=== PATIENT | female | born 1990 | race African-American/Black ===

== ENCOUNTER 2024-09-03 09:21 | Inpatient (IN) | payer MEDICAID ==
[~2024-09-03] VITALS: Ht 160 cm; Wt 83.0 kg
[~2024-09-03 09:21] MED LIST: CARV6.2548 PO; FURO40TA5 PO; LISI-186 PO; ONDA-239 PO; OXYC-89 PO; PANT40TA51 PO
[2024-09-03 09:51] LABS: BASOPHILS % 0.3 % (0.0-2.0); EOSINOPHILS % 0.6 % (0.0-5.0); HEMATOCRIT. 33.1 % (36.0-48.0); HEMOGLOBIN. 10.3 g/dL (12.0-16.0); LYMPHOCYTES % 13.3 % (20.0-50.0); MEAN CORPUSCULAR HEMOGLOBIN 25.8 pg (28.0-32.0); MEAN CORPUSCULAR HGB CONC 31.2 g/dL (31.0-37.0); MEAN CORPUSCULAR VOLUME 82.7 fL (81.0-99.0); MONOCYTES % 12.7 % (2.0-8.0); NEUTROPHILS % 73.1 % (40.0-76.0); PLATELET 331 x1000/uL (130-400); WHITE BLOOD COUNT 9.2 x1000/uL (4.5-11.0)
[2024-09-03 10:02] LABS: CHLORIDE 100 mEq/L (98-107); POTASSIUM 3.9 mEq/L (3.5-5.1); SODIUM 136 mEq/L (136-145)
[2024-09-03 10:03] LABS: CARBON DIOXIDE 25 mEq/L (21-32)
[2024-09-03 10:04] LABS: CALCIUM 9.2 mg/dL (8.7-10.4)
[2024-09-03 10:08] LABS: CREATININE 0.7 mg/dL (0.6-1.0); GLUCOSE 94 mg/dL (70-105); UREA NITROGEN BLOOD 6 mg/dL (9-23)
[2024-09-03 10:09] LABS: TROPONIN I HIGH SENSITIVITY 4 ng/L (3.0-34)
[2024-09-03 10:10] LABS: ALANINE AMINOTRANSFERASE 19 IU/L (10-49); ALBUMIN 4.1 g/dL (3.2-4.8); ASPARTATE AMINOTRANSFERASE 26 IU/L (<34)
[2024-09-03 10:11] LABS: BILIRUBIN TOTAL 0.8 mg/dL (0.1-1.0); PROTEIN TOTAL 7.8 g/dL (6.0-8.3)
[2024-09-03] MEDS: KETOROLAC 30MG/ML VIAL IV STA (10:12)
[2024-09-03 10:59] LABS: TROPONIN I HIGH SENSITIVITY 4 ng/L (3.0-34)
[2024-09-03 11:00] LABS: ALANINE AMINOTRANSFERASE 19 IU/L (10-49); ALBUMIN 3.9 g/dL (3.2-4.8); ASPARTATE AMINOTRANSFERASE 26 IU/L (<34); BILIRUBIN DIRECT 0.3 mg/dL (<=3.0); BILIRUBIN TOTAL 0.7 mg/dL (0.1-1.0); PROTEIN TOTAL 7.6 g/dL (6.0-8.3)
[2024-09-03] MEDS: SODIUM CHLORIDE 0.9% 1,000 ML IV ONE (11:08)
[2024-09-03] MEDS: VANCOMYCIN 1G PREMIX 200 ML IV ONE (11:08)
[2024-09-03] MEDS: PIPERACILLIN/TAZO 3.375G/50ML 50 ML IV ONE (11:08)
[2024-09-03 12:11] LABS: HCG SCREEN NEGATIVE
[2024-09-03] MEDS: HYDROCODONE/ACETAMINOPHEN 10/325MG TABLET PO PRN (16:00)
[2024-09-03 18:45] VITALS: BP 139/91; PULSE 102; RESP 24; TEMP 36.9; O2SAT 82
[2024-09-03 18:46] VITALS: O2SAT 92
[2024-09-03 20:00] VITALS: BP 148/106; PULSE 99; RESP 24; TEMP 36.5
[2024-09-03 20:04] VITALS: BP 139/91; PULSE 109; RESP 16; TEMP 36.4; O2SAT 93
[2024-09-03] MEDS ORDERED: HYDROCODONE/ACETAMINOPHEN 10/325MG TABLET PO PRN (22:00)
[2024-09-03] MEDS ORDERED: ONDANSETRON HCL 4MG/2ML INJ IV PRN (22:00)
[2024-09-03] MEDS ORDERED: ACETAMINOPHEN 325MG TABLET PO PRN (22:00)
[2024-09-03] MEDS ORDERED: NALOXONE HCL 0.4MG/ML VIAL IV PRN (22:15)
[2024-09-03] MEDS: HYDRALAZINE HCL 25MG TABLET PO SCH (23:06)
[2024-09-03] MEDS: CARVEDILOL 6.25 MG TABLET PO SCH (23:06)
[2024-09-03] MEDS: HYDROXYCHLOROQUINE SULFATE 200MG TABLET PO SCH (23:07)
[2024-09-03] MEDS: ENOXAPARIN 30MG/0.3ML SYR SUBCUT SCH (23:07)
[2024-09-04 00:04] VITALS: BP 134/110; PULSE 108; RESP 20; TEMP 36.5; O2SAT 100
[2024-09-04 04:04] VITALS: BP 147/126; PULSE 100; RESP 19; TEMP 36.2; O2SAT 88
[2024-09-04 07:30] LABS: HEMATOCRIT. 30.1 % (36.0-48.0); HEMOGLOBIN. 9.5 g/dL (12.0-16.0); MEAN CORPUSCULAR HEMOGLOBIN 25.8 pg (28.0-32.0); MEAN CORPUSCULAR HGB CONC 31.7 g/dL (31.0-37.0); MEAN CORPUSCULAR VOLUME 81.6 fL (81.0-99.0); MEAN PLATELET VOLUME 7.3 fl (7.4-10.4); PLATELET 320 x1000/uL (130-400); RED BLOOD CELL COUNT 3.69 mill/uL (4.2-5.4); RED CELL DISTRIBUTION WIDTH 16.7 % (11.6-14.6); WHITE BLOOD COUNT 7.1 x1000/uL (4.5-11.0)
[2024-09-04 07:52] LABS: DIFFERENTIAL COMMENT 1
[2024-09-04 07:54] LABS: CALCIUM 8.9 mg/dL (8.7-10.4); CARBON DIOXIDE 26 mEq/L (21-32); CHLORIDE 100 mEq/L (98-107); POTASSIUM 3.6 mEq/L (3.5-5.1); SODIUM 136 mEq/L (136-145)
[2024-09-04 08:00] VITALS: BP 136/101; PULSE 115; RESP 20; TEMP 36.7; O2SAT 100
[2024-09-04 08:00] LABS: CREATININE 0.7 mg/dL (0.6-1.0); GLUCOSE 91 mg/dL (70-105); UREA NITROGEN BLOOD 7 mg/dL (9-23)
[2024-09-04] MEDS: ASPIRIN 81MG TABLET PO SCH (08:28)
[2024-09-04] MEDS: FUROSEMIDE 40MG TABLET PO SCH (08:28)
[2024-09-04 12:00] VITALS: BP 158/117; PULSE 100; RESP 20; TEMP 36.8; O2SAT 99
[2024-09-04] MEDS: CEFTRIAXONE 1GM/50ML 50 ML IV SCH (12:07)
[2024-09-04] MEDS: PREDNISONE 20MG TABLET PO SCH (13:05)
[2024-09-04] MEDS: KETOROLAC 30MG/ML VIAL IV PRN (15:32)
[2024-09-04 16:00] VITALS: BP 143/110; PULSE 90; RESP 21; TEMP 36.7; O2SAT 99
[2024-09-04 16:59] LABS: CLARITY URINE CLEAR (CLEAR); COLOR URINE YELLOW (YELLOW); GLUCOSE URINE NEGATIVE (NEGATIVE); KETONES URINE NEGATIVE (NEGATIVE); LEUKOCYTE ESTERASE URINE NEGATIVE (NEGATIVE); NITRITE URINE NEGATIVE (NEGATIVE); OCCULT BLOOD URINE NEGATIVE (NEGATIVE); PH URINE 6.5 (4.5-8.0); PROTEIN URINE NEGATIVE (NEGATIVE); SPECIFIC GRAVITY URINE 1.003 (1.005-1.030); UROBILINOGEN URINE 0.2 E.U./dL (0.2-1.0)
[2024-09-04 17:13] LABS: *AMPHETAMINES SCREEN URINE NEGATIVE (NEGATIVE); *BARBITURATES SCREEN URINE NEGATIVE (NEGATIVE); *BENZODIAZEPINES SCREEN URINE NEGATIVE (NEGATIVE); *COCAINE SCREEN URINE NEGATIVE (NEGATIVE); METHADONE URINE SCREEN NEGATIVE (NEGATIVE)
[2024-09-04 17:14] LABS: CANNABINOID URINE SCREEN NEGATIVE (NEGATIVE); ECSTASY MDMA SCREEN URINE NEGATIVE (NEGATIVE); OPIATES URINE SCREEN PRESUMPTIVE POSITIVE (NEGATIVE); PHENCYCLIDINE URINE SCREEN NEGATIVE (NEGATIVE)
[2024-09-04 19:03] LABS: ANISOCYTOSIS 1+; PLATELET ESTIMATE NORMAL
[2024-09-04 20:00] VITALS: BP 131/96; PULSE 90; RESP 18; TEMP 36.6; O2SAT 96
[2024-09-05] VITALS: BP 165/59; PULSE 63; RESP 20; TEMP 36.7; O2SAT 98
[2024-09-05 04:00] VITALS: BP 157/60; PULSE 75; RESP 19; TEMP 36.6; O2SAT 100
[2024-09-05 08:00] VITALS: BP 127/89; PULSE 83; RESP 26; TEMP 36.6; O2SAT 84
[2024-09-05 12:00] VITALS: BP 120/96; PULSE 74; RESP 18; TEMP 36.6; O2SAT 90
[2024-09-05 16:00] VITALS: BP 132/95; PULSE 79; RESP 18; TEMP 36.4; O2SAT 95
[2024-09-05 20:02] VITALS: BP_SYST 138; BP_SYST 164; BP_DIAS 100; BP_DIAS 111; PULSE 75; PULSE 80; RESP 16; RESP 20; TEMP 36.2; TEMP 36.4; O2SAT 100
[2024-09-05] MEDS ORDERED: DIPHENHYDRAMINE 50MG CAPSULE PO PRN (21:30)
[2024-09-05] MEDS: DIPHENHYDRAMINE 25MG CAPSULE PO PRN (21:42)
[2024-09-06 00:02] VITALS: BP 121/77; PULSE 68; RESP 18; TEMP 36.2; O2SAT 92
[2024-09-06] MEDS ORDERED: CLONIDINE 0.1MG TABLET PO SCH (01:00)
[2024-09-06] MEDS: CLONIDINE 0.1MG TABLET PO PRN (01:07)
[2024-09-06 04:02] VITALS: BP 146/110; PULSE 74; RESP 18; TEMP 36.2; O2SAT 100
[2024-09-06 08:00] VITALS: BP 132/101; PULSE 82; RESP 16; TEMP 36.6; O2SAT 97
[2024-09-06] MEDS ORDERED: P20 MT ×2 (09:28→09:30)
[2024-09-06 11:22] VITALS: BP 136/96; PULSE 85; TEMP 97.8; O2SAT 98
[2024-09-06] MEDS ORDERED: LISI20TA31 MT (12:54)
== END 2024-09-06 13:48 | disposition home or self-care (01) | DRG 249 ==
LOC: ER 09:21 → 3WST 13:46 → EDBEDREQTM 13:48 → EDBEDREQ 13:48
PROVIDERS: ADMIT Internal Medicine; ATTEND Internal Medicine
DX: K52.9 Noninfective gastroenteritis and colitis, unspecified (principal); J96.00 Acute respiratory failure, unspecified whether with hypoxia or hypercapnia; I50.22 Chronic systolic (congestive) heart failure; I11.0 Hypertensive heart disease with heart failure; D64.9 Anemia, unspecified; J98.4 Other disorders of lung; Z98.891 History of uterine scar from previous surgery
CPT/HCPCS: 36415; 71045; 71275; 80048; 80053; 80076; 80305; 81003; 83605; 84145; 84484; 84703; 85025; 85379; 93005; 93306; 93970; 94618; 99291; J0696; J1650; J1885; J2543; J3370; J7030; J7512; Q0163

== ENCOUNTER 2025-06-15 07:44 | Inpatient (IN) | payer MEDICAID ==
[~2025-06-15] VITALS: Ht 167.6 cm; Wt 90.7 kg
[~2025-06-15 07:44] MED LIST changes: +AMOX1TAB16 PO; +BUPR75TA94 PO; +DICY-18 PO; +FOLI-43 PO; -FURO40TA5 PO; +HYDR-4001 PO; +HYDR200T35 PO; +HYDR25TA78 PO; +METH2.5T PO; -ONDA-239 PO; -OXYC-89 PO; +PILO5TAB17 PO; +PRED10TA PO; +PREG75CA PO; +SPIR25TA PO; +VALA100044 PO
[2025-06-15] MEDS: ACETAMINOPHEN 1000MG/100ML 100 ML IV ONE (09:09)
[2025-06-15] MEDS: ALBUTEROL (0.083%) 2.5MG/3ML NEB HHN ONE (09:15)
[2025-06-15 09:16] VITALS: PULSE 86; O2SAT 100
[2025-06-15] MEDS: ONDANSETRON HCL 4MG/2ML INJ IV ONE (09:19)
[2025-06-15 09:38] LABS: BASOPHILS % 0.4 % (0.0-2.0); EOSINOPHILS % 0.2 % (0.0-5.0); HEMATOCRIT. 38.3 % (36.0-48.0); HEMOGLOBIN. 12.2 g/dL (12.0-16.0); LYMPHOCYTES % 9.3 % (20.0-50.0); MEAN PLATELET VOLUME 8.8 fl (7.4-10.4); MONOCYTES % 8.5 % (2.0-8.0); NEUTROPHILS % 81.6 % (40.0-76.0); PLATELET 198 x1000/uL (130-400); RED BLOOD CELL COUNT 4.35 mill/uL (4.2-5.4); RED CELL DISTRIBUTION WIDTH 14.7 % (11.6-14.6)
[2025-06-15 09:50] LABS: CREATININE 0.8 mg/dL (0.6-1.0)
[2025-06-15 09:51] LABS: UREA NITROGEN BLOOD 6 mg/dL (9-23)
[2025-06-15 09:52] LABS: TROPONIN I HIGH SENSITIVITY 5 ng/L (3.0-34)
[2025-06-15] MEDS ORDERED: DOCUSATE SODIUM 100MG CAPSULE PO PRN (13:30)
[2025-06-15] MEDS ORDERED: MAGNESIUM/ALUMINUM HYDROXIDE/SIMETHICONE 30ML UDC PO PRN (13:30)
[2025-06-15] MEDS ORDERED: ACETAMINOPHEN 325MG TABLET PO PRN (13:30)
[2025-06-15] MEDS ORDERED: ONDANSETRON HCL 4MG/2ML INJ IV PRN (13:30)
[2025-06-15] MEDS ORDERED: GUAIFENESIN 200MG/10ML SUGAR FREE UDC PO PRN (13:30)
[2025-06-15] MEDS ORDERED: BUDESONIDE 0.5MG/2ML NEB HHN SCH (13:45)
[2025-06-15] MEDS: BENZONATATE 100MG CAPSULE PO SCH (14:25)
[2025-06-15] MEDS: SODIUM CHLORIDE 0.9% 1,000 ML IV SCH (14:25)
[2025-06-15] MEDS: DEXAMETHASONE 4MG/ML 1ML VIAL IV NR (14:25)
[2025-06-15] MEDS: CEFTRIAXONE 1GM/50ML 50 ML IV SCH (15:30)
[2025-06-15] MEDS: IPRATROPIUM/ALBUTEROL 0.5-3(2.5)MG/3ML NEB HHN PRN (15:47)
[2025-06-15 15:48] VITALS: PULSE 95; RESP 22; O2SAT 97
[2025-06-15] MEDS: CLONIDINE 0.1MG TABLET PO PRN (15:50)
[2025-06-15] MEDS: ACETAMINOPHEN 325MG TABLET PO PRN (15:51)
[2025-06-15 17:18] LABS: HCG SCREEN NEGATIVE
[2025-06-15 17:58] LABS: CLARITY URINE CLEAR (CLEAR); COLOR URINE DARK YELLOW (YELLOW); GLUCOSE URINE NEGATIVE (NEGATIVE); KETONES URINE 1+ (NEGATIVE); LEUKOCYTE ESTERASE URINE NEGATIVE (NEGATIVE); NITRITE URINE NEGATIVE (NEGATIVE); OCCULT BLOOD URINE NEGATIVE (NEGATIVE); PH URINE 6.0 (4.5-8.0); PROTEIN URINE 1+ (NEGATIVE); SPECIFIC GRAVITY URINE 1.029 (1.005-1.030); UROBILINOGEN URINE 1.0 E.U./dL (0.2-1.0)
[2025-06-15 18:07] LABS: WBC URINE 0-2 /hpf (0-2)
[2025-06-15 18:08] LABS: *AMPHETAMINES SCREEN URINE NEGATIVE (NEGATIVE); *BARBITURATES SCREEN URINE NEGATIVE (NEGATIVE); *BENZODIAZEPINES SCREEN URINE NEGATIVE (NEGATIVE); *COCAINE SCREEN URINE NEGATIVE (NEGATIVE); BACTERIA URINE RARE; RBC URINE NONE SEEN /hpf (0-2); SQUAMOUS EPITHELIAL CELL URINE RARE /lpf (RARE/1+)
[2025-06-15 18:09] LABS: CANNABINOID URINE SCREEN PRESUMPTIVE POSITIVE (NEGATIVE); ECSTASY MDMA SCREEN URINE NEGATIVE (NEGATIVE); METHADONE URINE SCREEN NEGATIVE (NEGATIVE); OPIATES URINE SCREEN NEGATIVE (NEGATIVE); PHENCYCLIDINE URINE SCREEN NEGATIVE (NEGATIVE)
[2025-06-15 18:15] VITALS: BP 149/90; PULSE 80; RESP 18; TEMP 36.5; O2SAT 100
[2025-06-15 20:00] VITALS: BP 140/90; PULSE 82; RESP 19; TEMP 36.4; O2SAT 99
[2025-06-15] MEDS: BUDESONIDE 0.5MG/2ML NEB HHN SCH (20:23)
[2025-06-15] MEDS ORDERED: LORAZEPAM 1MG TABLET PO PRN (20:30)
[2025-06-15 21:40] VITALS: PULSE 88; RESP 20
[2025-06-15] MEDS: DICLOFENAC SODIUM 75MG DR TABLET PO SCH (21:52)
[2025-06-15] MEDS: HYDROXYCHLOROQUINE SULFATE 200MG TABLET PO SCH (21:52)
[2025-06-15] MEDS: GUAIFENESIN 600MG ER TABLET PO SCH (21:53)
[2025-06-15] MEDS: PANTOPRAZOLE 40MG DR TABLET PO SCH (21:53)
[2025-06-15] MEDS: MELATONIN 3MG TABLET PO SCH (21:53)
[2025-06-15] MEDS: CARVEDILOL 6.25 MG TABLET PO SCH (21:53)
[2025-06-15] MEDS: HYDRALAZINE HCL 25MG TABLET PO SCH (21:54)
[2025-06-16] VITALS (8 sets, daily range): BP systolic 105–161; BP diastolic 60–111; PULSE 65–85; RESP 18–20; TEMP 36.1–37; O2SAT 97–99
[2025-06-16 08:45] LABS: INFLUENZA TYPE A Presumptive Negative (Pres. Neg.); INFLUENZA TYPE B Presumptive Negative (Pres. Neg.)
[2025-06-16 08:46] LABS: RESPIRATORY SYNCYTIAL VIRUS Not Detected (Not Detectd)
[2025-06-16 09:02] LABS: BASOPHILS % 0.3 % (0.0-2.0); EOSINOPHILS % 0.1 % (0.0-5.0); HEMATOCRIT. 39.2 % (36.0-48.0); HEMOGLOBIN. 12.3 g/dL (12.0-16.0); LYMPHOCYTES % 7.9 % (20.0-50.0); MEAN PLATELET VOLUME 9.5 fl (7.4-10.4); MONOCYTES % 4.3 % (2.0-8.0); NEUTROPHILS % 87.4 % (40.0-76.0); PLATELET 195 x1000/uL (130-400); RED BLOOD CELL COUNT 4.38 mill/uL (4.2-5.4); RED CELL DISTRIBUTION WIDTH 14.9 % (11.6-14.6)
[2025-06-16] MEDS: SPIRONOLACTONE 25MG TABLET PO SCH (09:11)
[2025-06-16] MEDS: LISINOPRIL 5MG TABLET PO SCH (09:12)
[2025-06-16 09:13] LABS: CREATININE 0.9 mg/dL (0.6-1.0)
[2025-06-16] MEDS: AMLODIPINE 10MG TABLET PO SCH (09:13)
[2025-06-16 09:14] LABS: TRIGLYCERIDE 86 mg/dL (0-150); UREA NITROGEN BLOOD 10 mg/dL (9-23)
[2025-06-16 09:15] LABS: LDL CHOLESTEROL 73 mg/dL (5-100)
[2025-06-16 09:17] LABS: T4 FREE 1.20 ng/dL (0.89-1.76)
[2025-06-16] MEDS ORDERED: NALOXONE HCL 0.4MG/ML VIAL IV PRN (10:15)
[2025-06-16] MEDS: FUROSEMIDE 40MG TABLET PO SCH (11:31)
[2025-06-16] MEDS: HYDROCODONE/ACETAMINOPHEN 5/325MG TABLET PO PRN (11:36)
[2025-06-16 13:04] LABS: TROPONIN I HIGH SENSITIVITY < 4 ng/L (3.0-34)
[2025-06-16] MEDS: CEFTRIAXONE 1GM/50ML 50 ML IV SCH (15:36)
[2025-06-16] MEDS: PREGABALIN 75MG CAPSULE PO SCH (20:13)
[2025-06-16] MEDS: BUPROPION HCL 75MG TABLET PO SCH (20:15)
[2025-06-16] MEDS: FOLIC ACID 1MG TABLET PO SCH (20:20)
[2025-06-16] MEDS: PILOCARPINE HCL 5MG TABLET PO SCH (20:21)
[2025-06-16] MEDS: PREDNISONE 20MG TABLET PO SCH (20:21)
[2025-06-16] MEDS: CARVEDILOL 12.5MG TABLET PO SCH (20:23)
[2025-06-16] MEDS: DIPHENHYDRAMINE 50MG/ML VIAL IV NR (23:01)
[2025-06-17] VITALS: BP 130/78; PULSE 82; RESP 18; TEMP 36.4; O2SAT 97
[2025-06-17] MEDS: NITROGLYCERIN OINT 1GM/INCH UDPKT TD SCH
[2025-06-17 04:00] VITALS: BP 102/63; PULSE 66; RESP 18; TEMP 36.9; O2SAT 98
[2025-06-17 07:17] LABS: BASOPHILS % 0.3 % (0.0-2.0); EOSINOPHILS % 0.6 % (0.0-5.0); HEMATOCRIT. 35.9 % (36.0-48.0); HEMOGLOBIN. 11.5 g/dL (12.0-16.0); LYMPHOCYTES % 16.3 % (20.0-50.0); MEAN PLATELET VOLUME 9.4 fl (7.4-10.4); MONOCYTES % 5.4 % (2.0-8.0); NEUTROPHILS % 77.4 % (40.0-76.0); PLATELET 197 x1000/uL (130-400); RED BLOOD CELL COUNT 4.02 mill/uL (4.2-5.4); RED CELL DISTRIBUTION WIDTH 14.8 % (11.6-14.6)
[2025-06-17 07:41] LABS: CREATININE 1.0 mg/dL (0.6-1.0)
[2025-06-17 07:42] LABS: TROPONIN I HIGH SENSITIVITY < 4 ng/L (3.0-34); UREA NITROGEN BLOOD 16 mg/dL (9-23)
[2025-06-17 07:44] LABS: PHOSPHORUS 3.4 mg/dL (2.5-4.9)
[2025-06-17 08:00] VITALS: BP 110/73; PULSE 68; RESP 14; TEMP 36.5; O2SAT 99
[2025-06-17] MEDS: LOSARTAN 25 MG TABLET PO SCH (08:58)
[2025-06-17] MEDS: METHOTREXATE SODIUM 2 . 5MG TABLET PO SCH ×2 (09:03→13:35)
[2025-06-17 10:15] VITALS: PULSE 73; RESP 18; O2SAT 93
[2025-06-17 12:00] VITALS: BP 99/65; PULSE 70; RESP 17; TEMP 36.6; O2SAT 99
[2025-06-17 14:42] LABS: HEPATITIS C AB NON REACTIVE (Neg) (Negative)
[2025-06-17] MEDS ORDERED: HYDR25TA78 PO (15:11)
[2025-06-17] MEDS ORDERED: BENZ100C86 PO (15:11)
[2025-06-17] MEDS ORDERED: METH2.5T PO (15:11)
[2025-06-17] MEDS ORDERED: PRED10TA PO (15:11)
[2025-06-17] MEDS ORDERED: COR6 PO (15:11)
[2025-06-17] MEDS ORDERED: AMOX1TAB16 MT (15:11)
[2025-06-17] MEDS ORDERED: PREG75CA PO (15:11)
[2025-06-17] MEDS ORDERED: FOLI-43 PO (15:11)
[2025-06-17] MEDS ORDERED: AMLO10TA80 PO (15:11)
[2025-06-17] MEDS ORDERED: LOSA25TA26 PO (15:11)
[2025-06-17] MEDS ORDERED: PILO5TAB17 PO (15:11)
[2025-06-17] MEDS ORDERED: BUPR75TA94 PO (15:11)
[2025-06-17] MEDS ORDERED: NITR1OIN TD (15:11)
[2025-06-17] MEDS ORDERED: HYDR200T35 PO (15:11)
[2025-06-17] MEDS ORDERED: PRED10TA MT (15:11)
[2025-06-17] MEDS ORDERED: GUAI600T44 PO (15:11)
[2025-06-17 15:29] VITALS: BP 99/65; PULSE 70; RESP 18; TEMP 97.8
[2025-06-17] MEDS ORDERED: METHOTREXATE SODIUM 2 . 5MG TABLET PO SCH (17:00)
[2025-06-17] MEDS ORDERED: CARVEDILOL 6.25 MG TABLET PO SCH (21:00)
[2025-06-18 09:10] LABS: COMPLEMENT C3 131 mg/dL (82-167); COMPLEMENT C4 16 mg/dL (12-38)
[2025-06-19 13:11] LABS: RNP ANTIBODY < 0.2 AI (0.0-0.9); SMITH ANTIBODY < 0.2 AI (0.0-0.9)
[2025-06-19 15:07] LABS: ANTI-DNA DOUBLE STRANDED QUANT 1 IU/mL (0-9)
[2025-06-20 09:07] LABS: ALDOLASE 6.8 U/L (3.3-10.3)
[2025-06-21 15:09] LABS: ANTI-MYELOPEROXIDASE AB < 0.2 units (0.0-0.9); ANTI-PROTEINASE 3 ABS < 0.2 units (0.0-0.9)
== END 2025-06-17 16:05 | disposition home or self-care (01) | DRG 199 ==
LOC: ER 07:44 → 8WST 10:08 → EDBEDREQTM 10:14 → EDBEDREQ 10:14
PROVIDERS: ADMIT Internal Medicine; ATTEND Internal Medicine
DX: I16.0 Hypertensive urgency (principal); I27.20 Pulmonary hypertension, unspecified; I50.22 Chronic systolic (congestive) heart failure; I11.0 Hypertensive heart disease with heart failure; I73.1 Thromboangiitis obliterans [Buerger's disease]; F19.10 Other psychoactive substance abuse, uncomplicated; M32.9 Systemic lupus erythematosus, unspecified; I08.1 Rheumatic disorders of both mitral and tricuspid valves; J06.9 Acute upper respiratory infection, unspecified; R04.2 Hemoptysis; I42.9 Cardiomyopathy, unspecified; Z98.891 History of uterine scar from previous surgery; K58.9 Irritable bowel syndrome, unspecified; M79.7 Fibromyalgia; M35.00 Sjogren syndrome, unspecified; Z91.148 Patient's other noncompliance with medication regimen for other reason; Z79.899 Other long term (current) drug therapy; F12.90 Cannabis use, unspecified, uncomplicated; J35.2 Hypertrophy of adenoids; H60.91 Unspecified otitis externa, right ear; K59.00 Constipation, unspecified; Z85.41 Personal history of malignant neoplasm of cervix uteri; Z87.59 Personal history of other complications of pregnancy, childbirth and the puerperium; M54.2 Cervicalgia
CPT/HCPCS: 36415; 70490; 71045; 80048; 80061; 80305; 81003; 82085; 82550; 82595; 83520; 83605; 83735; 83880; 84100; 84145; 84439; 84443; 84484; 84703; 85025; 86160; 86225; 86235; 86256; 86705; 87340; 87420; 87804; 93005; 93306; 93970; 94070; 94640; 94664; 96361; 96365; 96375; 99285; J0696; J1100; J1200; J2405; J7512; J7626; J8610; J0131